=== PATIENT | male | born 1970 | race Caucasian/White ===

== ENCOUNTER 2018-08-16 23:48 | Emergency (ER) | payer BC ==
[2018-08-16] MEDS ORDERED: Tetracaine 0.5% OPTH.SOL 4 ML* 1 DROP BTL ONE (23:56)
[2018-08-16] MEDS ORDERED: Fluorescein Sodium TOPICAL* 1 MG TEST STRIP OPHTHALMIC ONE (23:57)
--- NOTE | 2018-08-17 00:03 | ED ---
Throat Pain/Nasal Congestion - HPI Summary HPI Summary: 47-year-old male presents with potential foreign body in left eye. He states that he was grinding and got sawdust into his left eye. He states that his eyes has been red and irritated. He denies any change in vision. He does not wear contacts or glasses. He tried to irrigate eyelid minimal relief. His tetanus is up-to-date. Has no medical conditions. - History of Current Complaint Chief Complaint: EDEyeProblem Time Seen by Provider: 08/16/18 23:56 - Allergies/Home Medications Allergies/Adverse Reactions: Allergies Allergy/AdvReac Type Severity Reaction Status Date / Time erythromycin base Allergy GI Upset Verified 08/16/18 23:50 PMH/Surg Hx/FS Hx/Imm Hx Endocrine/Hematology History: Denies: Hx Anticoagulant Therapy Cardiovascular History: Reports: Hx Hypertension Denies: Hx Pacemaker/ICD Sensory History: Denies: Hx Hearing Aid Psychiatric History: Denies: Hx Panic Disorder - Surgical History Surgery Procedure, Year, and Place: LUMBAR SURGERY L5-S1 1999. additional back surgery,. hand surgery. Infectious Disease History: No Infectious Disease History: Denies: History Other Infectious Disease, Traveled Outside the [place] in Last 30 Days - Family History Known Family History: Positive: Non-Contributory - Social History Alcohol Use: Weekly Alcohol Amount: 3 DRINKS/ WEEKLY Substance Use Type: Reports: None Smoking Status (MU): Never Smoked Tobacco Review of Systems Negative: Fever Positive: Drainage - watery, Erythema Negative: Chest Pain Negative: Shortness Of Breath All Other Systems Reviewed And Are Negative: Yes Physical Exam Triage Information Reviewed: Yes Vital Signs On Initial Exam: Initial Vitals Temp Pulse Resp BP Pulse Ox 97.6 F 62 16 142/99 99 08/16/18 23:49 08/16/18 23:49 08/16/18 23:49 08/16/18 23:49 08/16/18 23:49 Vital Signs Reviewed: Yes Appearance: Positive: Well-Appearing Skin: Positive: Warm, Dry Head/Face: Positive: Normal Head/Face Inspection Eyes: Positive: EOMI, BRENNA, Conjunctiva Inflammed ENT: Positive: Normal ENT inspection, Pharynx normal, TMs normal Respiratory/Lung Sounds: Positive: Clear to Auscultation, Breath Sounds Present Cardiovascular: Positive: Normal, RRR Musculoskeletal: Positive: Normal Neurological: Positive: Normal Psychiatric: Positive: Normal Procedures - Eye Procedure left Alcaine Drops Administered: Yes - no uptake on fluorscein exam Diagnostics - Vital Signs Vital Signs Temp Pulse Resp BP Pulse Ox 08/16/18 23:49 97.6 F 62 16 142/99 99 - Laboratory Lab Statement: Any lab studies that have been ordered have been reviewed, and results considered in the medical decision making process. Re-Evaluation - Re-Evaluation First Eval Re-Evaluation Time: 00:41 Change: Improved Comment: improved after eye wash EENT Course/Dx - Course Course Of Treatment: 47-year-old male presents with potential foreign body in left eye. He states that he was grinding and got sawdust into his left. He states that his eyes has been red and irritated. He denies any change in vision. He does not wear contacts or glasses. He tried to irrigate eyelid minimal relief. His tetanus is up-to-date. Has no medical conditions. On exam left eye conjunctiva injected. No foreign body seen. No uptake on fluorescein exam. washed Eye out with eyewash. We'll place on Poly[place]. Patient understands agrees with plan. - Differential Diagnoses Differential Diagnoses: Conjunctivitis, Corneal Abrasion, Foreign Body - Diagnoses Provider Diagnoses: Sensation of foreign body in eye Discharge - Sign-Out/Discharge Documenting (check all that apply): Patient Departure - Discharge Plan Condition: Good Disposition: HOME Referrals: Jayme Pierre MD [Primary Care Provider] - Rafa Fitzgerald MD [Medical Doctor] - Additional Instructions: Place 1 drop in eye 4 times a day for 5 days Use artificial tears or saline to rinse eye for symptomatic relief Take Tylenol or ibuprofen for pain Follow up with ophthalmology if no improvement in 5 days Return to ED if develop any new or worsening symptoms - Billing Disposition and Condition Condition: GOOD Disposition: Home
[2018-08-17] MEDS ORDERED: Polymyx/Trimethoprim OPTH* 10 ML BTL LEFT EYE ONE (00:30)
[2018-08-17 01:00] VITALS: BP 143/77
== END 2018-08-17 00:58 | disposition home or self-care (01) ==
LOC: ED 23:48
DX: H57.89 Other specified disorders of eye and adnexa (principal); Z88.1 Allergy status to other antibiotic agents
CPT/HCPCS: 99281; A9270-GY